=== PATIENT | female | born 1985 | race Two or more races ===

== ENCOUNTER 2023-12-20 05:16 | Day surgery (SDC) | payer OTHER ==
[2023-11-30 09:30] LABS: HEMATOCRIT 36.9 % (36.0-45.00); HEMOGLOBIN 12.3 g/dL (12.0-15.00); MEAN CELL VOLUME 80.5 fL (80.00-100.00); MEAN CORPUSCULAR HEMOGLOBIN 26.9 pg (27.00-32.0); MEAN CORPUSCULAR HGB CONC 33.4 g/dl (32.0-36.0); PLATELET COUNT 292 K/uL (150-450); RED BLOOD COUNT 4.59 M/uL (4.00-6.00); RED CELL DISTRIBUTION WIDTH 16.9 % (11.5-14.5)
[2023-11-30 09:58] LABS: ALBUMIN 3.6 gm/dL (3.4-5.0); BILIRUBIN TOTAL 0.42 mg/dL (0.3-1.2); CALCIUM 8.9 mg/dL (8.5-10.1); CREATININE SERUM 0.83 mg/dL (0.55-1.02); GFR 77.78; GLOBULINA 3.9 G/DL (2.4-3.5); POTASSIUM 4.26 mEq/L (3.5-5.1); TOTAL PROTEIN 7.5 gm/dL (6.4-8.2)
[2023-11-30 10:00] LABS: INR 1.02; PARTIAL THROMBOPLASTIN TIME 35.1 SECONDS (22.0-34.0); PROTHROMBIN TIME 10.7 SECONDS (9.0-11.5)
[2023-11-30 10:05] LABS: URINE APPEARANCE Clear; URINE BILIRRUBIN Negative (NEGATIVE); URINE BLOOD Trace; URINE COLOR Yellow; URINE GLUCOSE Negative (NEGATIVE); URINE KETONE Negative (NEGATIVE); URINE LEUKOCYTE Negative; URINE NITRATE Negative; URINE PROTEIN Negative (NEGATIVE); URINE UROBILINOGEN 0.2 E.U./dl
[2023-11-30 10:10] LABS: URINE BACTERIA 176.3 uL (0.0-1933); URINE EPITHELIAL CELLS 12.8 uL (0.0-38.8); URINE RBC 4.8 uL (0.0-20.8); URINE WBC 9.7 uL (0.0-23.2)
[~2023-12-20] VITALS: Ht 162.6 cm; Wt 86.2 kg
[2023-12-20] MEDS ORDERED: DEXAMETHASONE SODIUM PHOSPHATE 4 MG/ML VIAL ONE (07:36)
[2023-12-20] MEDS ORDERED: SUGAMMADEX SODIUM 200 MG/2 ML VIAL IV ONE (08:54)
== END 2023-12-20 11:40 | disposition home or self-care (01) ==
LOC: CIR.AMB 05:16
PROVIDERS: ATTEND Otolaryngology
DX: J35.01 Chronic tonsillitis (principal)